=== PATIENT | female | born 1955 | race Caucasian/White ===

== ENCOUNTER → 2021-07-25 10:16 | Outpatient (REF) | payer MEDICARE, BC, SELFPAY ==
--- NOTE | 2021-07-25 10:22 | CA_ITS ---
Transthoracic Echocardiogram Patient (Last, First, Middle): Jocelyn Larry, Gender: Female Date of : 1955 Age: 66 Procedure Date: 07/25/2021 Procedure Type: Transthoracic Echocardiogram Location: OP Height: 160.02 cm Weight: 63.5 kg BSA: 1.66 m2 Heart Rate: bpm BP: 118 / 70 mmHg [employer] Farmer: [id number] Sidhu MD: Mary Ramirez PA-C Rn Orthopaedics: Roberto De La Garza MD Symptoms: R06.00 GREY Study Quality: Good ECG Rhythm: Sinus Conclusions: - 1. Normal LV systolic function with grade 1 diastolic dysfunction 2. Mildly dilated left atrium 3. Normal cardiac valvular Doppler 4. Normal RV systolic pressure 5. No pericardial effusion Findings Left Ventricle Normal left ventricular size, thickness, and systolic function. The visually estimated ejection fraction is between 60-65%. Spectral Doppler is indicative of an impaired relaxation filling pattern. E/E prime ratio is <8, consistent with normal filling pressures. Evidence suggests grade I (mild) diastolic dysfunction. Right Ventricle Normal right ventricular cavity size and systolic function. Atria The left atrium is mildly dilated. There is no evidence of interatrial shunt. The right atrium is normal in size. Aortic Valve Normal aortic valve structure and function. There is no aortic valve stenosis. There is no aortic valve regurgitation. Mitral Valve Normal mitral valve structure and function. There is trace mitral valve regurgitation. There is no mitral valve stenosis. Pulmonic Valve The pulmonic valve was not well visualized. Tricuspid Valve Likely normal tricuspid valve structure and function. There is trace tricuspid valve regurgitation. The right ventricular systolic pressure is normal. The right ventricular systolic pressure is 25 mmHg. Normal right atrial pressure. There is no evidence of pulmonary hypertension. Great Vessels All visible segments of the aorta are normal in size. The pulmonary artery was not well visualized. Venous The inferior vena cava is normal in size and collapses greater than 50% with inspiration. Pericardium/Pleural There is no evidence of pericardial effusion. Prior Study Comparison No prior study available for comparison. I could not read this study till today due to technical issues Measurements 2D Linear Measurements IVSd: 0.87 0.6-0.9/0.6-1.0 cm LVIDd: 4.88 3.9-5.3/4.2-5.9 cm LVIDd Index: 2.94 2.4-3.2/2.2-3.1 cm/m2 LVIDs: 2.59 2.0-3.6 cm LVPWd: 0.92 0.7-1.1 cm Ao Root: 2.90 2.1-3.5 cm LA Diam: 3.80 2.7-3.8/3.0-4.0 cm LAIDs Index: 2.29 1.5-2.3 cm/m2 LV Mass: 187.61 67-162/88-224 g LV Mass Index: 113.02 43-95/49-115 g/m2 LVOT Diam: 2.10 3.0+(-)1.3 cm Mitral Valve MV Pk E: 0.55 MV PK A: 0.78 MV Decel Time: 205.00 E/A: 0.70 E'Lateral: 7.18 E'Medial: 5.87 E/E' Med: 9.40 E/E' Lat: 7.70 PHT: 60.00 MVA PHT: 3.67 Decel Evangeline: 2.69 Aortic Valve AoV Pk Abraham: 1.55 AoV Mn Abraham: 1.02 AoV VTI: 0.35 AoV Pk Grad: 10.00 Aov Mn Grad: 5.00 PRASANTH Cont.VTI: 2.64 LVOT LVOT Pk Abraham: 1.14 LVOT Mn Abraham: 0.68 LVOT VTI: 0.27 LVOT Pk Grad: 5.00 LVOT Mn Grad: 2.00 LVOT Diam: 2.10 LVOT Area: 3.46 Diastolic Function MV Pk E: 0.55 MV Pk A: 0.78 E/A: 0.70 E'Medial: 5.87 E/E' Med: 9.40 E' Laterial: 7.18 E/E' Lat: 7.70 Right Ventricle TAPSE (mm): 27.00 TVS' Abraham: 14.00 Tricuspid Valve TR Pk Abraham: 2.34 TR Pk Grad: 22.00 RA Press: 3.00 RVSP: 25.00 Great Vessels Aorta Ao Root-2D: 2.90 2.0-3.7 cm Ao Asc: 3.50 2.1-3.4 cm Pulmonary Valve PV Pk Abraham: 0.86 Peak PV Grad: 3.00 Updated in Other Vendor System with Status of Final Roberto De La Garza MD electronically signed on 07/29/2021 9:13:52 AM with status of Final
== END ==
LOC: HO.CARD 10:16
PROVIDERS: Visit Provider Physician Assistant
DX: R06.00 Dyspnea, unspecified (principal)
CPT/HCPCS: 93306